=== PATIENT | female | born 1965 | race African-American/Black ===

== ENCOUNTER 2016-11-25 11:40 | Emergency (ER) | payer OTHER ==
[~2016-11-25] VITALS: Ht 162.6 cm; Wt 90.7 kg
--- NOTE | 2016-11-25 12:34 | RAD ---
Exam performed: One view chest. Indication: Shortness of air for 2 weeks Date of Service: 11/25/2016 2:21 PM Comparison: None available. Single AP upright portable view chest findings: Cardiomediastinal silhouette is enlarged. Pulmonary vascularity is mildly congested. No acute infiltrates, effusion or pneumothorax is detected. The bony structures are normal. Impression: Cardiomegaly with mild central vascular congestion.
[2016-11-25 12:35] LABS: BASO # 0.1 x10^3/uL (0.0-0.2); BASO % 1 % (0-3); EOS % 0 % (0-3); HEMATOCRIT 42.9 % (36.0-47.0); HEMOGLOBIN 13.7 g/dL (12.0-15.5); LYMPH # 1.5 x10^3/uL (1.0-4.8); LYMPH % 14 % (24-48); MEAN CORPUSCULAR HEMOGLOBIN 28 pg (25-35); MEAN CORPUSCULAR HGB CONC 32 g/dL (31-37); MEAN CORPUSCULAR VOLUME 88 fL (79-100); MONO # 0.5 x10^3/uL (0.0-1.1); MONO % 5 % (0-9); NEUT # 8.8 x10^3uL (1.8-7.7); NEUT % 81 % (31-73); PLATELET COUNT 280 x10^3/uL (140-400); RED BLOOD COUNT 4.88 x10^6/uL (3.50-5.40); RED CELL DISTRIBUTION WIDTH 18.1 % (11.5-14.5); WHITE BLOOD COUNT 10.9 x10^3/uL (4.0-11.0)
[2016-11-25 12:49] LABS: ALBUMIN 3.6 g/dL (3.4-5.0); ALBUMIN/GLOBULIN RATIO 1.1 (1.0-1.7); ALK PHOS 247 U/L (46-116); ALT (SGPT) 64 U/L (14-59); ANION GAP 13 (6-14); AST (SGOT) 70 U/L (15-37); BLOOD UREA NITROGEN 50 mg/dL (7-20); BUN/CREATININE RATIO 14 (6-20); CALCIUM 9.4 mg/dL (8.5-10.1); CARBON DIOXIDE 24 mmol/L (21-32); CHLORIDE 99 mmol/L (98-107); CREATININE 3.7 mg/dL (0.6-1.0); GFR 15.5; GLUCOSE 167 mg/dL (70-99); POTASSIUM 3.4 mmol/L (3.5-5.1); SODIUM 136 mmol/L (136-145)
[2016-11-25] MEDS: LABETALOL 20 MG/4 ML DISP.SYRIN. IVP ONE ×3 (12:58→13:58)
[2016-11-25] MEDS: FUROSEMIDE 40 MG/4 ML VIAL IVP ONE (13:45)
--- NOTE | 2016-11-25 13:46 | EKG ---
[address] [address] Test Date: 2016-11-25 Test Time: 12:22:04 Pat Name: BESSIE MCNALLY Department: Room: Gender: F Licensed Physical Therapy Assistant: JONO : [id number] Requested By: LILIANA URBINA Order Number: [id number] Reading MD: Stephen Baker Measurements Intervals Dillon Rate: 87 P: 53 GA: 120 QRS: -30 QRSD: 112 T: -161 QT: 412 QTc: 496 Interpretive Statements SINUS RHYTHM LEFT ATRIAL ABNORMALITY ABNORMAL LEFT AXIS DEVIATION LEFT ANTERIOR FASCICULAR BLOCK LVH WITH REPOLARIZATION ABNORMALITY Electronically Signed On 11-26-2016 9:43:40 CDT by Stephen Baker
[2016-11-25 13:58] VITALS: BP 202/145
[2016-11-25 14:16] LABS: BILIRUBIN,URINE NEG (NEG); CLARITY,URINE CLOUDY; COLOR,URINE AMBER; GLUCOSE,URINE NEG (NEG); NITRITE,URINE NEG (NEG); UROBILINOGEN,URINE 0.2 mg/dL (0.2 mg/dL)
[2016-11-25 14:17] LABS: BACTERIA,URINE MANY /HPF (0-FEW); GRANULAR CASTS,URINE OCC /HPF; HYALINE CASTS, URINE FEW /HPF; SQUAMOUS EPITHELIAL CELL,UR MOD /LPF
--- NOTE | 2016-11-25 14:32 | ED.ADGEN ---
Past History Past Medical History: No Pertinent History Past Surgical History: No Surgical History Alcohol Use: None Drug Use: None Adult General Chief Complaint Chief Complaint Shortness of breath, nausea and vomiting [facility] HPI Patient is a 50-year-old -[place] female with history of hypertension who presents with dyspnea with exertion for the past several days. Patient also reports nausea, daily vomiting with perceived weight loss over the past 2 weeks. Triage, the patient's noted be hypertensive, blood pressure 220/160. Patient states she does not take any medications and does not see a doctor in a routine basis. She has not been evaluated by a physician over 3 years. Reports increased leg pain and swelling. She denies chest pain, flank pain, back pain and decreased urinary output. She denies history of coronary disease, congestive heart failure, renal failure, diabetes, or decreased urinary output., Review of Systems Review of Systems ROS as per HPI. Current Medications Current Medications Current Medications Medications (Trade) Dose Ordered Sig/Sergio Start Time Stop Time Status Last Admin Dose Admin Furosemide (Lasix) 40 mg 1X ONCE 11/25/16 13:45 11/25/16 13:46 DC 11/25/16 13:45 40 MG Labetalol HCl (Normodyne) 20 mg 1X ONCE 11/25/16 13:45 11/25/16 13:46 DC 11/25/16 13:58 20 MG Nicardipine HCl 50 mg/Sodium Chloride 270 ml @ 0 mls/hr CONT PRN 11/25/16 14:15 UNV Allergies Allergies Allergies Coded Allergies Type Severity Reaction Last Updated Verified No Known Drug Allergies 02/18/14 No Physical Exam Physical Exam Constitutional: Well developed, well nourished, no acute distress, non-toxic appearance. [] HENT: Normocephalic, atraumatic, bilateral external ears normal, oropharynx moist, no oral exudates, nose normal. [] Eyes: PERRLA, EOMI, conjunctiva normal, no discharge. [] Neck: Normal range of motion, no tenderness, supple, no stridor. [] Cardiovascular:Heart rate regular rhythm, no murmur, 2+ peripheral edema [] Lungs & Thorax: Bilateral breath sounds clear to auscultation [] Abdomen: Bowel sounds normal, soft, no tenderness, no masses, no pulsatile masses. [] Skin: Warm, dry, no erythema, no rash. [] Back: No tenderness, no CVA tenderness. [] Extremities: No tenderness, no cyanosis, no clubbing, ROM intact, no edema. [] Neurologic: Alert and oriented X 3, normal motor function, normal sensory function, no focal deficits noted. [] Psychologic: Affect normal, judgement normal, mood normal. [] Current Patient Data Vital Signs Vital Signs Date Time Temp Pulse Resp B/P (MAP) Pulse Ox O2 Delivery O2 Flow Rate FiO2 11/25/16 13:58 62 202/145 11/25/16 13:40 22 98 Room Air 11/25/16 12:00 98.8 Lab Results Laboratory Tests Test 11/25/16 12:15 11/25/16 13:45 White Blood Count 10.9 x10^3/uL (4.0-11.0) Red Blood Count 4.88 x10^6/uL (3.50-5.40) Hemoglobin 13.7 g/dL (12.0-15.5) Hematocrit 42.9 % (36.0-47.0) Mean Corpuscular Volume 88 fL (79-100) Mean Corpuscular Hemoglobin 28 pg (25-35) Mean Corpuscular Hemoglobin Concent 32 g/dL (31-37) Red Cell Distribution Width 18.1 % (11.5-14.5) H Platelet Count 280 x10^3/uL (140-400) Neutrophils (%) (Auto) 81 % (31-73) H Lymphocytes (%) (Auto) 14 % (24-48) L Monocytes (%) (Auto) 5 % (0-9) Eosinophils (%) (Auto) 0 % (0-3) Basophils (%) (Auto) 1 % (0-3) Neutrophils # (Auto) 8.8 x10^3uL (1.8-7.7) H Lymphocytes # (Auto) 1.5 x10^3/uL (1.0-4.8) Monocytes # (Auto) 0.5 x10^3/uL (0.0-1.1) Eosinophils # (Auto) 0.0 x10^3/uL (0.0-0.7) Basophils # (Auto) 0.1 x10^3/uL (0.0-0.2) Sodium Level 136 mmol/L (136-145) Potassium Level 3.4 mmol/L (3.5-5.1) L Chloride Level 99 mmol/L (98-107) Carbon Dioxide Level 24 mmol/L (21-32) Anion Gap 13 (6-14) Blood Urea Nitrogen 50 mg/dL (7-20) H Creatinine 3.7 mg/dL (0.6-1.0) H Estimated GFR (Cockcroft-Gault) 15.5 BUN/Creatinine Ratio 14 (6-20) Glucose Level 167 mg/dL (70-99) H Calcium Level 9.4 mg/dL (8.5-10.1) Total Bilirubin 1.0 mg/dL (0.2-1.0) Aspartate Amino Transferase (AST) 70 U/L (15-37) H Alanine Aminotransferase (ALT) 64 U/L (14-59) H Alkaline Phosphatase 247 U/L (46-116) H Troponin I Quantitative 0.256 ng/mL (0-0.055) H GI-Muu-C-Type Natriuretic Peptide > 79328 pg/mL (0-124) H Total Protein 7.0 g/dL (6.4-8.2) Albumin 3.6 g/dL (3.4-5.0) Albumin/Globulin Ratio 1.1 (1.0-1.7) Urine Collection Type Unknown Urine Color Kisha Urine Clarity Cloudy Urine pH 5.0 Urine Specific [place] 1.025 Urine Protein >100 mg/dl (NEG-TRACE) Urine Glucose (UA) Neg mg/dL (NEG) Urine Ketones (Stick) Neg mg/dL (NEG) Urine Blood Large (NEG) Urine Nitrite Neg (NEG) Urine Bilirubin Neg (NEG) Urine Urobilinogen Dipstick 0.2 mg/dL (0.2 mg/dL) Urine Leukocyte Esterase Neg (NEG) Urine RBC 6-10 /HPF (0-2) Urine WBC 11-20 /HPF (0-4) Urine Squamous Epithelial Cells Mod /LPF Urine Bacteria Many /HPF (0-FEW) Urine Hyaline Casts Few /HPF Urine Granular Casts Occ /HPF Urine Mucus Mod /LPF EKG EKG [EKG: ] Normal sinus rhythm, rate 87, left axis deviation, diffuse T wave inversions, ST depressions in leads V4 through V6, AB 1 and aVL and AV2 no acute ST elevation. Interpretation by this physician. Radiology/Procedures Radiology/Procedures [Chest x-ray: No acute cardiopulmonary disease per radiology report.] Course & Med Decision Making Course & Med Decision Making Pertinent Labs and Imaging studies reviewed. (See chart for details) [Acute hypertensive crisis with acute congestive heart failure and presumed acute kidney injury. Patient given repeat doses of labetalol and started on the carpeted drip. Nations troponin noted to be elevated likely secondary to demand perfusion mismatch. Patient accepted by Dr. Teran to [facility] ICU.] Final Impression Final Impression [1. Hypertensive Emergency 2. Acute congestive heart failure 3. Acute kidney injury] Problems: Dragon Disclaimer Dragon Disclaimer This electronic medical record was generated, in whole or in part, using a voice recognition dictation system. LILIANA URBINA DO Nov 25, 2016 14:32
[2016-11-25 14:50] LABS: AMPHETAMINE/METHAMPHETAMINE NEG (NEG); BARBITURATES NEG (NEG); BENZODIAZEPINES NEG (NEG); CANNABINOIDS NEG (NEG); COCAINE NEG (NEG); METHADONE NEG (NEG); OPIATES NEG (NEG); PHENCYCLIDINE NEG (NEG)
== END 2016-11-25 15:23 | disposition short-term general hospital (02) ==
LOC: ER 11:40
DX: I16.1 Hypertensive emergency (principal); I11.0 Hypertensive heart disease with heart failure; I50.9 Heart failure, unspecified; N17.9 Acute kidney failure, unspecified
CPT/HCPCS: 36415; 71010; 80053; 80307; 81001; 83880; 84484; 85025; 87086; 93005; 96374; 96375; 96376; 99285; J1940; J3490; G0479